=== PATIENT | male | born 1995 | race Caucasian/White ===

== ENCOUNTER 2021-11-15 10:12 | Emergency (ER) | payer SELFPAY ==
[~2021-11-15] VITALS: Ht 185.4 cm; Wt 145.1 kg
[2021-11-15 10:14] VITALS: BP 176/116
--- NOTE | 2021-11-15 10:21 | NUR ---
PATIENT AMBULATED TO BED 12.
--- NOTE | 2021-11-15 11:21 | NUR ---
pt c/o sore throat and ear pain x3 days.
--- NOTE | 2021-11-15 12:01 | NUR ---
PER LAB PATIENT RESWABBED FOR STREP, SPECIMEN WALKED TO LAB
[2021-11-15 12:12] VITALS: BP 176/116
--- NOTE | 2021-11-15 12:13 | NUR ---
Patient discharged with v/s stable. Written and verbal after care instructions ABOUT PHARYNGITIS given and explained. Patient verbalized understanding. Ambulatory with steady gait. All questions addressed prior to discharge. Advised to follow up with PMD.
== END 2021-11-15 12:13 | disposition home or self-care (01) ==
LOC: MED 10:12
DX: J02.9 Acute pharyngitis, unspecified (principal); I10 Essential (primary) hypertension; Z88.1 Allergy status to other antibiotic agents; Z88.8 Allergy status to other drugs, medicaments and biological substances
CPT/HCPCS: 87081; 99283